=== PATIENT | male | born 1930 | race Caucasian/White ===

== ENCOUNTER → 2018-03-06 | Outpatient (CLI) | payer MEDICARE ==
[~2018-03-06] MED LIST: ATOR40TA PO; Aspirin EC81 MG PO; Ativan1 MG PO; CLOP75 PO; Flonase 0.05% N16 GM; LEVSOD50 PO; Lisinopril2.5 MG; Lopressor 25 mg25 MG PO; METO25 PO; Nitrostat0.4 MG SL; PRED20 PO
== END ==
LOC: LAB SHORT 12:55 → LAB 12:55
DX: R31.9 Hematuria, unspecified (principal)
CPT/HCPCS: 87086

== ENCOUNTER → 2019-02-20 | Outpatient (CLI) | payer MEDICARE ==
[~2019-02-20] MED LIST changes: +CEFD300 PO
== END ==
LOC: PLD 09:17 → LAB SHORT 09:17
DX: N39.0 Urinary tract infection, site not specified (principal)
CPT/HCPCS: 87086